=== PATIENT | female | born 1985 | race American Indian/Alaskan Native ===

== ENCOUNTER 2020-07-17 08:12 | Outpatient (CLI) | payer OTHER ==
--- NOTE | 2020-07-17 10:48 | Ultrasound Report ---
LEFT DIGITAL DIAGNOSTIC MAMMOGRAM WITH CAD , 07/17/2020 LEFT LIMITED BREAST ULTRASOUND CLINICAL INFORMATION / INDICATION: The patient's physician is palpating a lump in the upper outer oliva drant of the left breast. The patient is unable to palpate this lump today. TECHNIQUE: Digital left mammographic imaging was performed. Limited ultrasound was performed. This ex amination was interpreted with the benefit of Computer-Aided Detection (CAD) analysis. COMPARISON: This is the patient's first mammogram FINDINGS: Breast Density: The breasts are extremely dense, which lowers the sensitivity of mammography. MAMMOGRAPHIC FINDINGS: No dominant mass, suspicious calcifications, or architectural distortion in th e left breast. ULTRASOUND FINDINGS: Targeted ultrasound evaluation was performed of the area of interest. Sonograp hic evaluation of the upper outer quadrant of the left breast does not reveal any cystic or solid mas s. IMPRESSION: No mammographic or sonographic evidence of malignancy within the left breast. Please correlate clinically with respect to palpable lump left breast per patient's physician. Follow up recommendation: Routine annual mammogram mammography at age 40 unless otherwise clinically indicated. A "normal" or negative report should not discourage follow up or biopsy of a clinically significant f inding. A written summary of these findings will be mailed to the patient. The patient will be entered into a mammography reporting system which will generate a reminder letter for the patient's next appointmen t at the appropriate interval. According to the [employer], yearly mammograms are recommended starting at age 40 and continuing as long as a woman is in good health. Breast MRI is recommended for women with an denise roximately 20-25% or greater lifetime risk of breast cancer, including women with a strong family his tory of breast or ovarian cancer and women who have been treated for Hodgkin's disease. Signer Name: Deana Lozano MD Signed: 07/17/2020 10:44 AM Workstation Name: [id number]
== END 2020-07-17 08:13 | disposition home or self-care (01) ==
LOC: SPVWC 08:12
PROVIDERS: ATTEND Obstetrics & Gynecology
DX: N63.21 Unspecified lump in the left breast, upper outer quadrant (principal); R92.8 Other abnormal and inconclusive findings on diagnostic imaging of breast